=== PATIENT | female | born 1970 | race Hispanic/Latino ===

== ENCOUNTER 2018-01-22 20:07 | Emergency (ER) | payer SELFPAY ==
[~2018-01-22] VITALS: Ht 152.4 cm; Wt 91.2 kg
[~2018-01-22 20:07] MED LIST: KEFLEX500 MG PO
[2018-01-22 21:15] LABS: HEMATOCRIT 41.9 % (37.0-47.0); HEMOGLOBIN 13.7 g/dl (12.0-16.0); IMMATURE GRANULOCYTES 0.5 % (0.0-1.0); MEAN CELL VOLUME 86.9 fL CALC (80.0-100.0); MEAN CORPUSCULAR HGB 28.4 pG CALC (26.0-32.0); MEAN CORPUSCULAR HGB CONC 32.7 g/L CALC (32.0-36.0); NEUT# 5.89 thou/uL (2.00-7.15); RED BLOOD COUNT 4.82 mill/uL (4.20-5.60); RED CELL DISTRI WIDTH 13.1 % (11.5-15.5)
[2018-01-22 21:21] LABS: URINE BILIRUBIN - DIPSTICK NEGATIVE (NEGATIVE); URINE BLOOD DIPSTICK NEGATIVE (NEGATIVE); URINE COLOR YELLOW; URINE GLUCOSE - DIPSTICK >=1000 mg/dL (NEGATIVE); URINE KETONE NEGATIVE (NEGATIVE); URINE LEUK ESTERASE NEGATIVE (Negative); URINE NITRITE - DIPSTICK NEGATIVE (Negative); URINE PROTEIN - DIPSTICK NEGATIVE (NEG-TRACE); URINE UROBILINOGEN - DIPSTICK 0.2 E.U./dL (0.2)
[2018-01-22 21:24] LABS: URINE CLARITY CLEAR
[2018-01-22 21:36] LABS: ALBUMIN 4.2 g/dL (3.2-5.0); ALKALINE PHOSPHATASE 123 u/l (38-126); AMYLASE 37 u/l (30-110); ANION GAP 15 (6-22 (CALC)); BILIRUBIN, TOTAL 0.5 mg/dL (0.0-1.4); BUN 12 mg/dL (7-17); BUN/CREATININE RATIO 20 (12-20 (CALC)); CARBON DIOXIDE 28 mmol/l (22-30); CHLORIDE 98 mmol/l (95-108); CREATININE 0.6 mg/dL (0.5-1.0); GFR > 60 ML/MIN (>=60 (CALC)); GFR FOR AFR.AMER. > 60 ML/MIN (>=60 (CALC)); LIPASE 136 u/l (23-300); POTASSIUM 4.3 mmol/l (3.5-5.1); SGOT/AST 23 u/l (14-36); SGPT/ALT 46 u/l (9-52); SODIUM 137 mmol/l (137-146)
[2018-01-22] MEDS ORDERED: ZOFRAN ODT4 MG PO (23:41)
[2018-01-22] MEDS ORDERED: NAPROSYN500 MG PO (23:41)
[2018-01-22 23:55] VITALS: BP 133/65
== END 2018-01-22 23:55 | disposition home or self-care (01) | DRG 392 ==
LOC: ED 20:07
DX: R10.12 Left upper quadrant pain (principal); R10.13 Epigastric pain; R05 Cough; R11.2 Nausea with vomiting, unspecified
CPT/HCPCS: Q9967

== ENCOUNTER 2018-05-21 08:03 | Emergency (ER) | payer SELFPAY ==
[~2018-05-21] VITALS: Ht 152.4 cm; Wt 84.5 kg
[~2018-05-21 08:03] MED LIST changes: +NAPROSYN500 MG PO; +ZOFRAN ODT4 MG PO
[2018-05-21] MEDS ORDERED: METFORMIN500 MG PO (08:33)
[2018-05-21 08:54] LABS: ALKALINE PHOSPHATASE 114 u/l (38-126); ANION GAP 15 (6-22 (CALC)); BILIRUBIN, TOTAL 0.4 mg/dL (0.0-1.4); BUN 17 mg/dL (7-17); BUN/CREATININE RATIO 32 (12-20 (CALC)); CARBON DIOXIDE 25 mmol/l (22-30); CHLORIDE 100 mmol/l (95-108); CREATININE 0.5 mg/dL (0.5-1.0); GFR > 60 ML/MIN (>=60 (CALC)); GFR FOR AFR.AMER. > 60 ML/MIN (>=60 (CALC)); LIPASE 129 u/l (23-300); POTASSIUM 3.9 mmol/l (3.5-5.1); SGOT/AST 19 u/l (14-36); SGPT/ALT 32 u/l (9-52); SODIUM 136 mmol/l (137-146); TOTAL PROTEIN 7.5 g/dL (6.3-8.2)
[2018-05-21 08:58] LABS: HEMATOCRIT 41.5 % (37.0-47.0); HEMOGLOBIN 13.8 g/dl (12.0-16.0); IMMATURE GRANULOCYTES 0.4 % (0.0-5.0); MEAN CELL VOLUME 87.2 fL CALC (80.0-100.0); MEAN CORPUSCULAR HGB CONC 33.3 g/L CALC (32.0-36.0); NEUT# 5.36 thou/uL (2.00-7.15); RED BLOOD COUNT 4.76 mill/uL (4.20-5.60); RED CELL DISTRI WIDTH 12.8 % (11.5-15.5)
[2018-05-21 09:16] LABS: URINE BILIRUBIN - DIPSTICK NEGATIVE (NEGATIVE); URINE BLOOD DIPSTICK NEGATIVE (NEGATIVE); URINE COLOR YELLOW; URINE GLUCOSE - DIPSTICK >=1000 mg/dL (NEGATIVE); URINE KETONE TRACE mg/dL (NEGATIVE); URINE LEUK ESTERASE NEGATIVE (NEGATIVE); URINE NITRITE - DIPSTICK NEGATIVE (Negative); URINE PROTEIN - DIPSTICK NEGATIVE (NEG-TRACE); URINE SPECIFIC GRAVITY 1.015; URINE UROBILINOGEN - DIPSTICK 0.2 E.U./dL (0.2)
[2018-05-21 09:18] LABS: URINE CLARITY CLEAR
[2018-05-21] MEDS ORDERED: TORADOL PO (09:45)
[2018-05-21] MEDS ORDERED: BENTYL10 MG PO (09:45)
[2018-05-21 09:46] VITALS: BP 123/78
== END 2018-05-21 10:02 | disposition home or self-care (01) | DRG 392 ==
LOC: ED 08:03
PROVIDERS: Emergency Medicine
DX: R10.31 Right lower quadrant pain (principal); R10.11 Right upper quadrant pain; G89.29 Other chronic pain; E11.65 Type 2 diabetes mellitus with hyperglycemia

== ENCOUNTER 2019-06-12 19:15 | Emergency (ER) | payer SELFPAY ==
[~2019-06-12] VITALS: Ht 152.4 cm; Wt 92.8 kg
[~2019-06-12 19:15] MED LIST changes: +BENTYL10 MG PO; +METFORMIN500 MG PO; +TORADOL PO
[2019-06-12] MEDS ORDERED: CEPHALEXIN500 M1 PO (19:29)
[2019-06-12 19:41] VITALS: BP 129/77
== END 2019-06-12 19:44 | disposition home or self-care (01) | DRG 605 ==
LOC: ED 19:15
DX: S91.332A Puncture wound without foreign body, left foot, initial encounter (principal); E11.9 Type 2 diabetes mellitus without complications; W45.0XXA Nail entering through skin, initial encounter; Z79.84 Long term (current) use of oral hypoglycemic drugs

== ENCOUNTER 2023-09-03 13:01 | Emergency (ER) | payer SELFPAY ==
[~2023-09-03] VITALS: Ht 157.5 cm; Wt 86.0 kg
[~2023-09-03 13:01] MED LIST changes: +CEPHALEXIN500 M1 PO; +MELOXICAM15 MG PO; +METFORMIN HCL1000 MG PO; +MIRALAX3350 N1 PO; +NAPROXEN500 MG PO; +ONDANSETRON4 MG PO
[2023-09-03 13:12] VITALS: BP 137/82
[2023-09-03 13:31] VITALS: BP 149/75
[2023-09-03 14:12] VITALS: BP 117/73
[2023-09-03 14:31] VITALS: BP 117/57
[2023-09-03] MEDS ORDERED: PREDNISONE20 MG PO (15:03)
[2023-09-03] MEDS ORDERED: VIBRAMYCIN100 M2 PO (15:03)
[2023-09-03] MEDS ORDERED: PROVENTIL HFA108 MCG INHW/SPAC (15:03)
[2023-09-03 15:13] VITALS: BP 117/57
== END 2023-09-03 15:31 | disposition home or self-care (01) | DRG 195 ==
LOC: ED 13:01
DX: J18.9 Pneumonia, unspecified organism (principal); E66.9 Obesity, unspecified; E11.9 Type 2 diabetes mellitus without complications; Z20.822 Contact with and (suspected) exposure to COVID-19

== ENCOUNTER 2024-03-25 14:24 | Emergency (ER) | payer OTHER ==
[2024-03-25] VITALS (8 sets, daily range): BP systolic 118–135; BP diastolic 70–82
[~2024-03-25] VITALS: Ht 157.5 cm; Wt 82.0 kg
[~2024-03-25 14:24] MED LIST changes: +PREDNISONE20 MG PO; +PROVENTIL HFA108 MCG INHW/SPAC; +VIBRAMYCIN100 M2 PO
== END 2024-03-25 16:38 | disposition home or self-care (01) | DRG 556 ==
LOC: ED 14:24
DX: M79.672 Pain in left foot (principal); E11.9 Type 2 diabetes mellitus without complications; Z79.84 Long term (current) use of oral hypoglycemic drugs